=== PATIENT | female | born 1970 | race Two or more races ===

== ENCOUNTER 2021-01-11 06:10 | Day surgery (SDC) | payer OTHER ==
[2021-01-11] MEDS ORDERED: CARAFATE1 GM PO (11:10)
[2021-01-11] MEDS ORDERED: NEXIUM 24HR20 MG PO (11:10)
== END 2021-01-11 12:50 | disposition home or self-care (01) ==
LOC: AMB-ENDOS 06:10
PROVIDERS: ATTEND Surgery
DX: K29.50 Unspecified chronic gastritis without bleeding (principal); K44.9 Diaphragmatic hernia without obstruction or gangrene; Z20.822 Contact with and (suspected) exposure to COVID-19